=== PATIENT | female | born 1985 | race African-American/Black ===

== ENCOUNTER 2019-05-18 10:32 | Emergency (ER) | payer OTHER ==
[~2019-05-18] VITALS: Ht 154.9 cm; Wt 86.2 kg
[~2019-05-18 10:32] MED LIST: NAPROSYN500 MG PO; NOHOMEMEDICATIONS; ORTHO-NOVUM1 EAC1 PO
[2019-05-18 10:50] LABS: URINE BILIRUBIN NEGATIVE (Negative); URINE BLOOD NEGATIVE (Negative); URINE CLARITY CLEAR; URINE COLOR YELLOW; URINE GLUCOSE-RANDOM* NEGATIVE (Negative); URINE KETONES NEGATIVE (Negative); URINE LEUKOCYTES 2+ (Negative); URINE NITRITE NEGATIVE (Negative); URINE PROTEIN (DIPSTICK) NEGATIVE (Negative)
[2019-05-18 10:59] LABS: BACTERIA 1-9 Few /HPF (None Seen); CASTS None Seen /LPF (None Seen); CRYSTALS None Seen /LPF (None Seen); SQUAMOUS 4-10 Moderate /LPF (0-3); URINE RBC 0-2 Rare /HPF (0-2); URINE WBC 6-15 Few /HPF (0-5)
[2019-05-18] MEDS ORDERED: KEFLEX500 M1 PO (11:50)
[2019-05-18 12:00] VITALS: BP 118/74
== END 2019-05-18 12:00 | disposition home or self-care (01) ==
LOC: ER 10:32
PROVIDERS: Emergency Medicine
DX: N39.0 Urinary tract infection, site not specified (principal); N92.1 Excessive and frequent menstruation with irregular cycle; F17.210 Nicotine dependence, cigarettes, uncomplicated